=== PATIENT | male | born 1995 ===

== ENCOUNTER 2021-07-30 18:50 | Emergency (ER) | payer MEDICAID ==
[2021-07-30] MEDS ORDERED: FLONASE 0.05% N16 GM (20:33)
[2021-07-30] MEDS ORDERED: MEDROL DOSEPAK 24 MG PO (20:33)
[2021-07-30] MEDS ORDERED: DELSYM30 MG/5 ML PO (20:33)
== END 2021-07-30 21:01 | disposition home or self-care (01) ==
LOC: ER1 18:50
DX: U07.1 COVID-19 (principal); F12.90 Cannabis use, unspecified, uncomplicated; Z86.14 Personal history of Methicillin resistant Staphylococcus aureus infection
CPT/HCPCS: 99284; U0003